=== PATIENT | male | born 1970 | race Caucasian/White ===

== ENCOUNTER 2021-08-14 20:44 | Emergency (ER) | payer BC, SELFPAY ==
[2021-08-14 20:50] VITALS: BP 204/131; PULSE 92; RESP 18; TEMP 37; O2SAT 100
--- NOTE | 2021-08-14 21:00 | DI.CT_ITS ---
Exam(s) CT HEAD WO EXAM: CT HEAD WO CLINICAL HISTORY: loss of smell, r/o bleed/mass. TECHNIQUE: Imaging Protocol: Axial computed tomography images with coronal and sagittal reformatted images were created and reviewed COMPARISON: No exams were available for comparison FINDINGS: There are no skull fractures nor fluid in the visualized paranasal sinuses. Mild mucosal thickening noted in the maxillary sinuses. No associated fluid level. There is no evidence of intracranial hemorrhage, mass effect, or shift of midline structures. There are no extra-axial fluid collections. The ventricles are not enlarged or shifted and there is no blo od within the ventricular system nor within the basal cisterns. IMPRESSION: No acute intracranial findings on this noninfused CT scan of the brain. RADIATION DOSE DELIVERED: 835.72mGy.cm Total DLP DATA REPOSITORY: All CT scans at this facility are submitted to the National Radiology Data Registry (NRDR) Dose Index Registry (DIR) with the [employer] ([employer]). RADIATION OPTIMIZATION: All CT scans at this facility use at least one of these dose optimization te chniques: automated exposure control; mA and/or kV adjustment per patient size (includes targeted exa ms where dose is matched to clinical indication); or iterative reconstruction.
[2021-08-14 21:04] VITALS: BP 170/116; PULSE 89
--- NOTE | 2021-08-14 21:10 | ED.GENADUL_ITS ---
Discharge Plan Disposition Patient Disposition: HOME Condition: Good Discharge Details Chief Complaint: GenMedical Clinical Impression: Anosmia due to nasal mucosa problem Primary Care Provider: None,None ED Provider: Fredis Li Discharge Instructions Additional Instructions: At this time your CAT scan shows no evidence of stroke, bleed, or mass/tumor. Your blood pressure did improve on its own, but it is very important that you follow-up closely with your primary care provider to discuss restarting your blood pressure medication. If you notice any worsening of your symptoms, or any new symptoms such as vomiting, diarrhea, fever, chills, shortness of breath, chest pain, numbness, weakness, or fainting , please return immediately to the emergency department for reevaluation. Please follow up with your primary care provider as soon as possible for reassessment and reevaluation. As always, it was a pleasure participating in your medical care today. Referrals: Janet Choudhury RN [Emergency Nurse] - Medical Decision Making This is a 50-year-old male with past medical history of hypertension, but no other significant medical problems, who presents today for evaluation of a loss of smell. Patient states that he has been traveling from [place], [facility], and just finished visiting family in [place], and while driving down from there to [place] he developed a sudden loss of smell. Patient also admitted to mild congestion, fatigue, brief episode of nausea, and feeling febrile and chills when that came about. He denies any headache, vision nickolas nges, numbness, tingling, weakness, cough, chest pain, shortness of breath. He has had his Covid vaccines and his booster which he received in late March, but does admit to significant amount of recent travel and potential exposure. Patient denies any history of stroke, he does not smoke. He denies any other complaints at this time. He otherwise states that he feels well. He does admit to slightly atypical smell noted in his car just prior to this episode, but denies any chronic or gradual change in smell over the last few days. He states that his taste is also somewhat muted. No other complaints at this time. No other modifying factors. Physical exam is notably unremarkable. Patient shows no evidence of nasal polyps, ear infection, or other abnormality. Lungs are clear. Vital signs are stable aside for hypertension. Neurologic assessment is no focal neurologic deficits. Patient does have muted taste currently as well. Differential is highest for mild Covid due to his read travel, his current immunization status, and his sudden onset of symptoms. Symptoms appear inconsistent with nasal polyp, a prolonged disorder. Notably less likely would be a tumor or mass due to the acute nature of his symptoms. Additionally stroke appears unlikely given the lack of other focal neurologic deficits, and is otherwise low level of risk factors aside for his hypertension. Patient otherwise feels well. Out of an abundance of caution we will get a CT scan to evaluate for large stroke, hemorrhage, or mass. We will test for Covid, will monitor closely and reassess. 10:[address] scan results have returned, no evidence of acute process, bleed, tumor mass or large stroke. There is evidence of patchy nuchal. Thickening visualized in the paranasal sinuses which certainly could be a component of the change in smell. Covid test returned negative. I did again test the patient sense of smell here with dried coffee, and he states he actually is able to smell that, and taste it. Repeat neurologic assessment shows no focal neurologic deficits, and the patient continues to show no other signs or symptoms consistent with stroke. Suspect that the change in smell was likely related to the mucoperiosteal thickening paranasal sinuses, however mild early Covid that is not yet detected is still in the differential. Symptoms appear inconsistent with significant stroke currently. I had a long discussion with the patient regarding the importance of close follow-up with his primary care provider about his blood pressure. His blood pressure has notably improved and he continues to deny any headache or chest pain, states he will follow-up with his PCP to restart blood pressure medicines when he get back, but does not want to start anything new now. Patient would like to go home at this time. I feel that this is reasonable. Patient will be discharged. Discussed red flags which to return. At this time symptoms are inconsistent with stroke, TIA, bleed, tumor, severe Covid. I have extensively reviewed the treatment plan and discharge instructions with the patient. I have addressed all patient concerns at this time. The patient was made aware of what symptoms to monitor for that would warrant a return to the emergency department. Discussed the plan with the patient, they demonstrate verbal understanding and agreement with our assessment and plan at this time. The documentation in this chart was dictated using [employer] dictation software. Please excuse any dictation errors. FINDINGS: Brain: No acute intracranial hemorrhage, mass-effect, midline shift, or extra- axial collection is seen. The jc white matter differentiation appears preserved. There is symmetric parenchymal volume loss. Cerebral ventricles: The ventricular system and basilar cisterns appear appropriate in size and configuration given the degree of parenchymal volume loss. Paranasal sinuses: There is patchy mucoperiosteal thickening in the visualized paranasal sinuses but no air-fluid levels. Mastoid air cells: The mastoid air cells appear well-aerated. Auditory system: The middle ear cavities appear clear. Orbital cavities: The globes and intraorbital structures appear grossly intact. Bones/joints: The bony calvarium appears intact. No depressed skull fracture is seen. Soft tissues: No significant scalp lesion is seen. IMPRESSION: 1. No acute intracranial abnormality seen. 2. Mild symmetric parenchymal volume loss. 3. Patchy mucoperiosteal thickening in the visualized paranasal sinuses. Thank you for allowing us to participate in the care of your patient. Dictated and Authenticated by: Elie Toney MD 08/14/2021 9:27 PM Eastern Time ([place] & [place]) HPI General Date/Time Provider Initiated Documentation: 08/14/21 20:48 . HPI Narrative: This is a 50-year-old male with past medical history of hypertension, but no other significant medical problems, who presents today for evaluation of a loss of smell. Patient states that he has been traveling from [place], [facility], and just finished visiting family in [place], and while driving down from there to [place] he developed a sudden loss of smell. Patient also admitted to mild congestion, fatigue, brief episode of nausea, and feeling febrile and chills when that came about. He denies any headache, vision changes, numbness, tingling, weakness, cough, chest pain, shortness of breath. He has had his Covid vaccines and his booster which he received in late March, but does admit to significant amount of recent travel and potential exposure. Patient denies any history of stroke, he does not smoke. He denies any other complaints at this time. He otherwise states that he feels well. He does admit to slightly atypical smell noted in his car just prior to this episode, but denies any chronic or gradual change in smell over the last few days. He states that his taste is also somewhat muted. No other complaints at this time. No other modifying factors. Related Data Allergies Allergy/AdvReac Type Severity Reaction Status Date / Time No Known Allergies Allergy Unverified 08/14/21 21:05 General Stated Complaint: GenMedical KAREN: 4 Review of Systems All systems reviewed & are unremarkable except as noted in HPI and below PFSH All Active Problems (Updated 08/14/21 @ 22:23 by Fredis Li DO) Anosmia due to nasal mucosa problem (Acute) Social History Smoking/Tobacco Use Status: Never Smoking risk assessment performed?: Yes Alcohol Intake: current Alcohol Intake frequency: holidays/special occasions only Drug use: Never Substance use type: does not use Exam Narrative Exam Narrative: 1.Const: Well-nourished, Well-developed, appearing stated age 2.Eyes: PERRL, no conjunctival injection, and symmetrical lids. 3.ENT: Atraumatic external nose and ears. Moist MM. Neck: Symmetric, trachea midline, No thyromegaly. No evidence of nasal polyps. No evidence of erythema in the posterior oropharynx. Tympanic membranes are jc and pearly. 4.CVS: +S1/S2, No murmurs or gallops. Peripheral pulses 2+ and equal in all extremities. Brisk capillary refill in all extremities. 5.RESP: Unlabored respiratory effort. Clear to auscultation bilaterally. No wheezes rales or rhonchi 6.GI: Soft, Nontender/Nondistended, No hepatosplenomegaly. No guarding or rebound. 7.MSK: Normocephalic/Atraumatic, Extremities w/o deformity or ttp No cyanosis or clubbing, Normal movement of all extremities 8.Skin: Warm, Dry. No rashes or lesions. 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 Sensation grossly intact, no focal neurologic deficits. All 6 cardinal planes of vision are fully intact. No evidence of rotatory or vertical nystagmus. The patient demonstrated a normal [id number], good dexterity. There was no evidence of dysdiadochokinesia. Patient was able to ambulate without difficulty. There was no wide-based gait. Romberg testing was normal. [id number] testing was normal. Sensation was intact bilaterally as well as muscle strength bilaterally for all extremities. Patient was able to verbalize butter cup with no slurring, or miss pronunciation. 10.Psych: (AAO) x3. Appropriate mood and affect Course Vital Signs Vital signs: Vital Signs Temperature 37 C 08/14/21 20:50 Pulse 92 H 08/14/21 20:50 Respiratory Rate 18 08/14/21 20:50 Blood Pressure 204/131 H 08/14/21 20:50 Pulse Oximetry 100 08/14/21 20:50 Temperature 37 C 08/14/21 20:50 Temperature Source Skin 08/14/21 20:50 Pulse 92 H 08/14/21 20:50 Respiratory Rate 18 08/14/21 20:50 Respiratory Effort 08/14/21 21:02 Respiratory Depth Normal 08/14/21 21:02 Respiratory Pattern Normal 08/14/21 21:02 Blood Pressure 204/131 H 08/14/21 20:50 Blood Pressure Position Sitting 08/14/21 20:50 Pulse Oximetry 100 08/14/21 20:50 Oxygen Delivery Method Room Air 08/14/21 20:50 Oxygen Flow Rate 0 08/14/21 20:50 Pain Level 0 08/14/21 20:50
[2021-08-14 21:11] LABS: Source Nasal/Nares
--- NOTE | 2021-08-14 21:28 | DI.VRAD_ITS ---
PROCEDURE INFORMATION: Exam: CT Head Without Contrast Exam date and time: 08/14/2021 9:14 PM Age: 50 years old Clinical indication: Other: Loss of smell; Additional info: R/O bleed/mass TECHNIQUE: Imaging protocol: Computed tomography of the head without contrast. COMPARISON: No relevant prior studies available. FINDINGS: Brain: No acute intracranial hemorrhage, mass-effect, midline shift, or extra-axial collection is seen. The jc white matter differentiation appears preserved. There is symmetric parenchymal volume loss. Cerebral ventricles: The ventricular system and basilar cisterns appear appropriate in size and configuration given the degree of parenchymal volume loss. Paranasal sinuses: There is patchy mucoperiosteal thickening in the visualized paranasal sinuses but no air-fluid levels. Mastoid air cells: The mastoid air cells appear well-aerated. Auditory system: The middle ear cavities appear clear. Orbital cavities: The globes and intraorbital structures appear grossly intact. Bones/joints: The bony calvarium appears intact. No depressed skull fracture is seen. Soft tissues: No significant scalp lesion is seen. IMPRESSION: 1. No acute intracranial abnormality seen. 2. Mild symmetric parenchymal volume loss. 3. Patchy mucoperiosteal thickening in the visualized paranasal sinuses. Dictated and Authenticated by: Elie Toney MD. Ordering:SANDHYA Mcneal MD
[2021-08-14 22:03] LABS: COVID-19 PCR Negative (Negative)
== END 2021-08-14 22:28 | disposition home or self-care (01) ==
PROVIDERS: Emergency Provider Student in an Organized Health Care Education/Training Program
DX: R43.0 Anosmia (principal); J34.89 Other specified disorders of nose and nasal sinuses; I10 Essential (primary) hypertension; Z20.822 Contact with and (suspected) exposure to COVID-19
CPT/HCPCS: 87635; 99283; 99284; 70450